=== PATIENT | female | born 1990 | race African-American/Black ===

== ENCOUNTER 2021-01-29 11:09 | Emergency (ER) | payer OTHER, MEDICAID ==
[~2021-01-29] VITALS: Ht 152.4 cm; Wt 55.8 kg
[2021-01-29] MEDS ORDERED: IBUPROFEN 200 MG TABLET. PO ONE (12:30)
[2021-01-29] MEDS ORDERED: ACETAMINOPHEN 500 MG TABLET PO ONE (12:30)
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
[2021-01-29 13:39] VITALS: BP 149/89
== END 2021-01-29 13:39 | disposition home or self-care (01) ==
LOC: ER 11:09
DX: S63.592A Other specified sprain of left wrist, initial encounter (principal); S80.01XA Contusion of right knee, initial encounter; M54.2 Cervicalgia; F17.210 Nicotine dependence, cigarettes, uncomplicated; Z90.89 Acquired absence of other organs; Z98.890 Other specified postprocedural states; V49.9XXA Car occupant (driver) (passenger) injured in unspecified traffic accident, initial encounter; Y93.89 Activity, other specified; Y92.413 State road as the place of occurrence of the external cause; Y99.8 Other external cause status
CPT/HCPCS: 70450; 71045; 72125; 73110; 73562; 81025; 99285

== ENCOUNTER 2021-06-12 07:18 | Emergency (ER) | payer MEDICAID, OTHER ==
[~2021-06-12] VITALS: Ht 154.9 cm; Wt 54.5 kg
--- NOTE | 2021-06-12 07:41 | PHYS DOC ---
Past Medical History Past Medical History: No Pertinent History Past Surgical History: Tonsillectomy, Other Additional Past Surgical Histo: adenoidectomy, hernia repair Smoking Status: Current Every Day Smoker Alcohol Use: Occasionally Drug Use: None General Adult EDM: Chief Complaint: PAIN ON URINATION HPI: HPI: Patient is a 30 year old female with history of previous UTIs and trichomonas infection who presents with approximately 8 days of dysuria. Pain started around the time of her last menstrual period on 06/03. Burning with urination has only increased. She is also complaining of frequency and urgency. She denies any fevers, chills, or flank pain. She has otherwise been feeling well. A couple of days ago she developed some vaginal itching. Has not had any vaginal discharge that she is aware of. She is concerned that she might have a sexually transmitted infection, she has recently restarted a relationship with her boyfriend. Previous trichomonas infection also occurred with this same partner. Review of Systems: Review of Systems: Constitutional: Denies fever or chills. [] Eyes: Denies change in visual acuity. [] HENT: Denies nasal congestion or sore throat. [] Respiratory: Denies cough or shortness of breath. [] Cardiovascular: Denies chest pain or edema. [] GI: Denies abdominal pain, nausea, vomiting, bloody stools or diarrhea. [] : Reports dysuria, urgency, frequency. Reports vaginal discharge. Denies flank pain.. [] Musculoskeletal: Denies back pain or joint pain. [] Integument: Denies rash. [] Neurologic: Denies headache, focal weakness or sensory changes. [] Endocrine: Denies polyuria or polydipsia. [] Lymphatic: Denies swollen glands. [] Psychiatric: Denies depression or anxiety. [] Heart Score: C/O Chest Pain: N/A Risk Factors: Risk Factors: DM, Current or recent (<one month) smoker, HTN, HLP, family history of CAD, obesity. Risk Scores: Score 0 - 3: 2.5% MACE over next 6 weeks - Discharge Home Score 4 - 6: 20.3% MACE over next 6 weeks - Admit for Clinical Observation Score 7 - 10: 72.7% MACE over next 6 weeks - Early Invasive Strategies Family History: Family History: No pertinent family history Allergies: Allergies: Allergies Coded Allergies Type Severity Reaction Last Updated Verified No Known Drug Allergies 01/29/21 No Physical Exam: PE: Constitutional: Well developed, well nourished, no acute distress, non-toxic appearance. [] HENT: Normocephalic, atraumatic, bilateral external ears normal, oropharynx moist, no oral exudates, nose normal. [] Eyes: PERRLA, EOMI, conjunctiva normal, no discharge. [] Neck: Normal range of motion, no tenderness, supple, no stridor. [] Cardiovascular:Heart rate regular rhythm, no murmur [] Lungs & Thorax: Bilateral breath sounds clear to auscultation [] Abdomen: Bowel sounds normal, soft, no tenderness, no masses, no pulsatile masses. [] : External genitalia normal. No evidence of external lesions. No evidence of friable cervical tissue or cervical masses. There is some thick white discharge with blood tingeing. Skin: Warm, dry, no erythema, no rash. [] Back: No tenderness, no CVA tenderness. [] Extremities: No tenderness, no cyanosis, no clubbing, ROM intact, no edema. [] Neurologic: Alert and oriented X 3, normal motor function, normal sensory function, no focal deficits noted. [] Psychologic: Affect normal, judgement normal, mood normal. [] Current Patient Data: Vital Signs: Vital Signs Date Time Temp Pulse Resp B/P (MAP) Pulse Ox O2 Delivery O2 Flow Rate FiO2 06/12/21 07:32 16 149/89 (109) Room Air EKG: EKG: NA [] Radiology/Procedures: Radiology/Procedures: NA [] Course & Med Decision Making: Course & Med Decision Making Pertinent Labs and Imaging studies reviewed. (See chart for details) Patient is a 30-year-old female with past medical history of trichomonas infection who presents with 8 days of dysuria, urgency, frequency concerning for urinary tract infection. Also complains of some vaginal itching. Vital signs are reviewed and are stable. No signs of sepsis or pyelonephritis. UA with 510 WBCs, with history of feel is sufficient to treat for urinary tract infection with Macrobid as this seems to be uncomplicated cystitis. Wet prep is negative. GC/Chlamydia are pending. With history of previous STI, and vaginal symptoms, and risk factor with her renewed relationship with her boyfriend will treat empirically for gonorrhea and chlamydia. Will give 500 mg IM ceftriaxone here and send with a 7-day prescription of doxycycline. Given contact information for her to establish with a PCP. Jaspreet Disclaimer: Jasp[employer] Disclaimer: This electronic medical record was generated, in whole or in part, using a voice recognition dictation system. Departure Departure Referrals: NO PCP (PCP) Scripts Nitrofurantoin Monohyd/M-Cryst (MACROBID 100 MG CAPSULE) 100 Mg Capsule 1 CAP PO BID for 7 Days, #14 CAP 0 Refills Prov: MAURA DANIELS MD 06/12/21 Doxycycline Monohydrate (DOXYCYCLINE MONOHYDRATE) 100 Mg Capsule 1 CAP PO BID for 7 Days, #14 CAP Prov: MAURA DANIELS MD 06/12/21 MAURA DANIELS MD Jun 12, 2021 07:41
[2021-06-12 07:48] LABS: BILIRUBIN,URINE NEGATIVE (NEG); CLARITY,URINE CLEAR; COLOR,URINE YELLOW; NITRITE,URINE NEGATIVE (NEG); PH,URINE 5.5 (<5.0-8.0); PROTEIN,URINE NEGATIVE (NEG-TRACE); UROBILINOGEN,URINE 0.2 mg/dL (0.2 mg/dL)
[2021-06-12 08:04] LABS: BACTERIA,URINE 0 /HPF (0-FEW); RBC,URINE OCC /HPF (0-2)
[2021-06-12] MEDS ORDERED: DOXY-181 PO (08:30)
[2021-06-12 08:36] VITALS: BP 106/72
[2021-06-12] MEDS ORDERED: NITR100C62 PO (08:42)
[2021-06-12] MEDS ORDERED: cefTRIAXone IM 500 MG VIAL. IM ONE (09:15)
[2021-06-13 19:14] LABS: GC PROBE Negative (Negative)
== END 2021-06-12 09:11 | disposition home or self-care (01) ==
LOC: ER 07:18
DX: R30.0 Dysuria (principal); R39.15 Urgency of urination; R35.0 Frequency of micturition; F17.200 Nicotine dependence, unspecified, uncomplicated; Z98.890 Other specified postprocedural states
CPT/HCPCS: 81001; 81025; 87086; 87491; 87591; 96372; 99283; J0696; Q0111

== ENCOUNTER 2021-10-21 09:18 | Observation (INO) | payer MEDICAID ==
[~2021-10-21] VITALS: Ht 160 cm; Wt 58.3 kg
[~2021-10-21 09:18] MED LIST: DOXY-181 PO; NITR100C62 PO
[2021-10-21] MEDS ORDERED: IV NORMAL SALINE 1000ML BAG 1,000 ML IV ONE (10:00)
[2021-10-21] MEDS ORDERED: ONDANSETRON PF 4 MG/2 ML VIAL. IVP ONE (10:00)
[2021-10-21 10:11] LABS: BASO % 1 % (0-3); EOS % 1 % (0-3); LYMPH # 0.4 x10^3/uL (1.0-4.8); LYMPH % 10 % (24-48); MEAN CORPUSCULAR HEMOGLOBIN 32 pg (25-35); MEAN CORPUSCULAR HGB CONC 33 g/dL (31-37); MEAN CORPUSCULAR VOLUME 98 fL (79-100); MONO # 0.2 x10^3/uL (0.0-1.1); MONO % 5 % (0-9); NEUT # 3.8 x10^3/uL (1.8-7.7); NEUT % 84 % (31-73); PLATELET COUNT 216 x10^3/uL (140-400); RED BLOOD COUNT 4.31 x10^6/uL (3.50-5.40); WHITE BLOOD COUNT 4.6 x10^3/uL (4.0-11.0)
[2021-10-21 10:17] LABS: CALCIUM 8.7 mg/dL (8.5-10.1); CREATININE 0.6 mg/dL (0.6-1.0); GFR 140.2; POTASSIUM 3.7 mmol/L (3.5-5.1)
[2021-10-21 10:23] LABS: ALBUMIN 4.1 g/dL (3.4-5.0); ALBUMIN/GLOBULIN RATIO 1.1 (1.0-1.7); TOTAL BILIRUBIN 0.4 mg/dL (0.2-1.0)
[2021-10-21 10:28] LABS: BILIRUBIN,URINE NEGATIVE (NEG); CLARITY,URINE CLEAR; COLOR,URINE YELLOW; NITRITE,URINE NEGATIVE (NEG); PH,URINE 5.5 (<5.0-8.0); PROTEIN,URINE NEGATIVE (NEG-TRACE)
[2021-10-21 10:46] LABS: BACTERIA,URINE FEW /HPF (0-FEW); RBC,URINE OCC /HPF (0-2)
--- NOTE | 2021-10-21 11:06 | RAD ---
US PELVIS W/TV History: Right lower quadrant pain. Rule out torsion. HCG negative. Comparison: None. Technique: Sonographic examination of the pelvis was performed with transabdominal and transvaginal t echnique. Findings: Uterus- Uterine parenchyma: Homogeneous without fibroids. Uterine measurements: 7.8 x 3.9 x 3.4 cm Cervix: Unremarkable. Endometrium- Endometrial Stripe: No abnormal fluid collections in the endometrial cavity, no obvious mass, and no abnormal blood flow within the endometrium by Doppler. Thickness: 4 mm. Adnexa- Right Ovary: Not identified with transabdominal or transvaginal vaginal technique. Left Ovary: Includes a 2.7 cm anechoic cyst and small follicles. Size: 3.4 x 2.9 x 2.8 cm Doppler: Normal. Other: No abnormal adnexal masses. Small free fluid is seen in the right adnexa and cul-de-sac. Impression: 1. Nonvisualization of the right ovary with transabdominal and transvaginal technique. A torsed ovar y is usually enlarged and identifiable. However ovarian torsion cannot be excluded. 2. Small right adnexal and cul-de-sac free fluid. Electronically signed by: Patrick Smith MD (10/21/2021 11:03 AM) [facility]
[2021-10-21] MEDS ORDERED: KETOROLAC 30 MG/ML VIAL. IVP ONE (11:15)
[2021-10-21] MEDS ORDERED: IOHEXOL 300 MG/ML 100ML VIAL. IV ONE (13:30)
[2021-10-21] MEDS ORDERED: CONTRAST GIVEN. MC PRN (13:30)
--- NOTE | 2021-10-21 14:19 | RAD ---
INDICATION: Reason: Right lower quadrant pain / Spl. Instructions: IV omni 300 75 mls / History: COMPARISON: Ultrasound from earlier same day TECHNIQUE: Axial CT images were obtained through the abdomen and pelvis with intravenous contrast. One or more of the following individualized dose reduction techniques were utilized for this examinat ion: 1. Automated exposure control; 2. Adjustment of the mA and/or kV according to patient size; 3 . Use of iterative reconstruction technique. FINDINGS: Vascular: No abdominal aortic aneurysm. Hepatobiliary: No intrahepatic biliary duct dilation. Pancreas: No peripancreatic edema. Spleen: Spleen unremarkable. Renal/Bladder: Low-density lesion of the left kidney measuring up to 12 mm. No hydronephrosis. Urinar y bladder is partially distended. Gastrointestinal: There is some free fluid seen within the pelvis. No dilated loops of bowel to sugge st obstruction. There is cystic foci at the bilateral proximal femur which could be related to degenerative changes. The appendix is not well evaluated secondary to multiple unopacified loops of bowel within the right lower quadrant well as minimal fat right lower quadrant. IMPRESSION: * The appendix is not well evaluated secondary to minimal fat in the right lower quadrant as well a s numerous unopacified loops of bowel in the right lower quadrant of the abdomen. * Free fluid is seen within the pelvis with a somewhat loculated appearance and some prominence of t he peritoneum within the area which could be secondary to inflammatory changes to the peritoneum. * No hydronephrosis. * Low-density lesion of the left kidney. Most common cause would be renal cyst in a patient of this age. Electronically signed by: Jose Francisco Allen MD (10/21/2021 2:16 PM) [id number]
[2021-10-21] MEDS ORDERED: cefTRIAXone IV Push 1 GM VIAL. IVP SCH (16:00)
[2021-10-21] MEDS ORDERED: DOXYCYCLINE HYCLATE 100 MG TABLET PO ONE (16:15)
[2021-10-21] MEDS ORDERED: metroNIDAZOLE 500 MG TABLET PO ONE (16:15)
[2021-10-21] MEDS ORDERED: cefTRIAXone IV Push 1 GM VIAL. IVP ONE (16:15)
--- NOTE | 2021-10-21 16:16 | PHYS DOC ---
Past Medical History Past Medical History: No Pertinent History Past Surgical History: Tonsillectomy, Other Additional Past Surgical Histo: adenoidectomy, hernia repair Smoking Status: Current Every Day Smoker Additional Information: < 0.25 Alcohol Use: Occasionally Drug Use: None General Adult EDM: Chief Complaint: MULTIPLE COMPLAINTS HPI: HPI: Patient is a 31-year-old female presents emergency department complaining of lower left and lower right pelvic pain for the past week, reporting abnormal uterine bleeding for the past month, reports a 6 out of 10 pain, reports taking 2 regular strength Tylenols at 2 AM this morning without relief of pain. Reports she has a history of ovarian cyst on the left. Patient reports she is bleeding 5 pads per day. Patient denies nausea, vomiting, or diarrhea. Denies vaginal discharge, denies STI concerns, denies itching or rashes to her vaginal area. Patient denies allergies to medications, reports she takes no medications at home, has no primary care physician. Patient reports abnormal uterine ble eding problems since her Nexplanon was placed 5 years ago. Patient denies recent fever or chills, denies chest pains, denies other physical complaints or physical concerns. Review of Systems: Review of Systems: 14 body systems of review of systems have been reviewed. See HPI for pertinent positives and negative responses, otherwise all other systems are negative, nonpertinent or noncontributory. Constitutional: Negative except as outlined in HPI above. Skin: Negative except as outlined in HPI above. Eyes: Negative except as outlined in HPI above. HENT: Negative except as outlined in HPI above. Respiratory: Negative except as outlined in HPI above. Cardiovascular: Negative except as outlined in HPI above. GI: Negative except as outlined in HPI above. : Negative except as outlined in HPI above. Musculoskeletal: Negative except as outlined in HPI above. Integument: Negative except as outlined in HPI above. Neurologic: Negative except as outlined in HPI above. Endocrine: Negative except as outlined in HPI above. Lymphatic: Negative except as outlined in HPI above. Psychiatric: Negative except as outlined in HPI above. Heart Score: C/O Chest Pain: No Risk Factors: Risk Factors: DM, Current or recent (<one month) smoker, HTN, HLP, family history of CAD, obesity. Risk Scores: Score 0 - 3: 2.5% MACE over next 6 weeks - Discharge Home Score 4 - 6: 20.3% MACE over next 6 weeks - Admit for Clinical Observation Score 7 - 10: 72.7% MACE over next 6 weeks - Early Invasive Strategies Current Medications: Current Medications Medications (Trade) Dose Ordered Sig/Cassy Start Time Stop Time Status Last Admin Dose Admin Ceftriaxone Sodium (Rocephin) 1 gm 1X ONCE 10/21/21 16:15 10/21/21 16:16 Doxycycline Hyclate (Vibra-Tab) 100 mg 1X ONCE 10/21/21 16:15 10/21/21 16:16 Info (CONTRAST GIVEN -- Rx MONITORING) 1 each PRN DAILY PRN 10/21/21 13:30 10/23/21 13:29 Iohexol (Omnipaque 300 Mg/ml) 75 ml 1X ONCE 10/21/21 13:30 10/21/21 13:33 DC 10/21/21 13:44 75 ML Ketorolac Tromethamine (Toradol 30mg Vial) 30 mg 1X ONCE 10/21/21 11:15 10/21/21 11:16 DC 10/21/21 11:17 30 MG Metronidazole (Flagyl) 2,000 mg 1X ONCE 10/21/21 16:15 10/21/21 16:16 Ondansetron HCl (Zofran) 4 mg 1X ONCE 10/21/21 10:00 10/21/21 10:01 DC 10/21/21 10:02 4 MG Sodium Chloride 1,000 ml @ 1,000 mls/hr 1X ONCE 10/21/21 10:00 10/21/21 10:59 DC 10/21/21 10:01 1,000 MLS/HR Allergies: Allergies: Allergies Coded Allergies Type Severity Reaction Last Updated Verified No Known Drug Allergies 01/29/21 No Physical Exam: PE: Constitutional: Well developed, well nourished, no acute distress, non-toxic appearance. 31-year-old female in no apparent distress. HENT: Normocephalic, atraumatic. Eyes: Conjunctiva normal, no discharge. Neck: Normal range of motion. Cardiovascular: Distal cap refill less than 2 seconds, no cyanosis appreciated. Lungs & Thorax: Patient is in no respiratory distress, no adventitious lung sounds appreciated. Abdomen: Bowel sounds normal, soft, tenderness to the right low pelvic area, no left-sided pelvic pain appreciated per palpation, no masses, no pulsatile masses. No bruising or skin discoloration of the abdomen. Skin: Warm, dry, no erythema, no rash. Back: No tenderness, no CVA tenderness. Extremities: No tenderness, no cyanosis, no clubbing, ROM intact, no edema. Neurologic: Alert and oriented X 3, normal motor function, normal sensory function, no focal deficits noted. Psychologic: Affect normal, judgement normal, mood normal. 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 Current Patient Data: Labs: Laboratory Tests Test 10/21/21 09:31 10/21/21 09:39 10/21/21 09:55 Urine Collection Type Void Urine Color Yellow Urine Clarity Clear Urine pH 5.5 Urine Specific [place] 1.025 Urine Protein Negative mg/dL Urine Glucose (UA) Negative mg/dL Urine Ketones (Stick) 40 mg/dL Urine Blood Large Urine Nitrite Negative Urine Bilirubin Negative Urine Urobilinogen Dipstick 1.0 mg/dL Urine Leukocyte Esterase Moderate Urine RBC Occ /HPF Urine WBC 5-10 /HPF Urine Squamous Epithelial Cells Few /LPF Urine Bacteria Few /HPF Bedside Urine HCG, Qualitative Hcg negative White Blood Count 4.6 x10^3/uL Red Blood Count 4.31 x10^6/uL Hemoglobin 14.0 g/dL Hematocrit 42.0 % Mean Corpuscular Volume 98 fL Mean Corpuscular Hemoglobin 32 pg Mean Corpuscular Hemoglobin Concent 33 g/dL Red Cell Distribution Width 13.0 % Platelet Count 216 x10^3/uL Neutrophils (%) (Auto) 84 % Lymphocytes (%) (Auto) 10 % Monocytes (%) (Auto) 5 % Eosinophils (%) (Auto) 1 % Basophils (%) (Auto) 1 % Neutrophils # (Auto) 3.8 x10^3/uL Lymphocytes # (Auto) 0.4 x10^3/uL Monocytes # (Auto) 0.2 x10^3/uL Eosinophils # (Auto) 0.0 x10^3/uL Basophils # (Auto) 0.0 x10^3/uL Sodium Level 138 mmol/L Potassium Level 3.7 mmol/L Chloride Level 102 mmol/L Carbon Dioxide Level 24 mmol/L Anion Gap 12 Blood Urea Nitrogen 13 mg/dL Creatinine 0.6 mg/dL Estimated GFR (Cockcroft-Gault) 140.2 BUN/Creatinine Ratio 22 Glucose Level 89 mg/dL Calcium Level 8.7 mg/dL Total Bilirubin 0.4 mg/dL Aspartate Amino Transf (AST/SGOT) 24 U/L Alanine Aminotransferase (ALT/SGPT) 29 U/L Alkaline Phosphatase 59 U/L Total Protein 8.0 g/dL Albumin 4.1 g/dL Albumin/Globulin Ratio 1.1 Current Medications Medications (Trade) Dose Ordered Sig/Cassy Route PRN Reason Start Time Stop Time Status Last Admin Dose Admin Sodium Chloride 1,000 ml @ 1,000 mls/hr 1X ONCE IV 10/21/21 10:00 10/21/21 10:59 DC 10/21/21 10:01 1,000 MLS/HR Ondansetron HCl (Zofran) 4 mg 1X ONCE IVP 10/21/21 10:00 10/21/21 10:01 DC 10/21/21 10:02 4 MG Ketorolac Tromethamine (Toradol 30mg Vial) 30 mg 1X ONCE IVP 10/21/21 11:15 10/21/21 11:16 DC 10/21/21 11:17 30 MG Iohexol (Omnipaque 300 Mg/ml) 75 ml 1X ONCE IV 10/21/21 13:30 10/21/21 13:33 DC 10/21/21 13:44 75 ML Info (CONTRAST GIVEN -- Rx MONITORING) 1 each PRN DAILY PRN MC SEE COMMENTS 10/21/21 13:30 10/23/21 13:29 Metronidazole (Flagyl) 2,000 mg 1X ONCE PO 10/21/21 16:15 10/21/21 16:16 Ceftriaxone Sodium (Rocephin) 1 gm 1X ONCE IVP 10/21/21 16:15 10/21/21 16:16 Doxycycline Hyclate (Vibra-Tab) 100 mg 1X ONCE PO 10/21/21 16:15 10/21/21 16:16 Laboratory Tests Test 10/21/21 09:31 10/21/21 09:39 10/21/21 09:55 Urine Collection Type Void Urine Color Yellow Urine Clarity Clear Urine pH 5.5 (<5.0-8.0) Urine Specific [place] 1.025 (1.000-1.030) Urine Protein Negative mg/dL (NEG-TRACE) Urine Glucose (UA) Negative mg/dL (NEG) Urine Ketones (Stick) 40 mg/dL (NEG) Urine Blood Large (NEG) Urine Nitrite Negative (NEG) Urine Bilirubin Negative (NEG) Urine Urobilinogen Dipstick 1.0 mg/dL (0.2 mg/dL) Urine Leukocyte Esterase Moderate (NEG) Urine RBC Occ /HPF (0-2) Urine WBC 5-10 /HPF (0-4) Urine Squamous Epithelial Cells Few /LPF Urine Bacteria Few /HPF (0-FEW) POC Urine HCG, Qualitative Hcg negative (Negative) White Blood Count 4.6 x10^3/uL (4.0-11.0) Red Blood Count 4.31 x10^6/uL (3.50-5.40) Hemoglobin 14.0 g/dL (12.0-15.5) Hematocrit 42.0 % (36.0-47.0) Mean Corpuscular Volume 98 fL (79-100) Mean Corpuscular Hemoglobin 32 pg (25-35) Mean Corpuscular Hemoglobin Concent 33 g/dL (31-37) Red Cell Distribution Width 13.0 % (11.5-14.5) Platelet Count 216 x10^3/uL (140-400) Neutrophils (%) (Auto) 84 % (31-73) H Lymphocytes (%) (Auto) 10 % (24-48) L Monocytes (%) (Auto) 5 % (0-9) Eosinophils (%) (Auto) 1 % (0-3) Basophils (%) (Auto) 1 % (0-3) Neutrophils # (Auto) 3.8 x10^3/uL (1.8-7.7) Lymphocytes # (Auto) 0.4 x10^3/uL (1.0-4.8) L Monocytes # (Auto) 0.2 x10^3/uL (0.0-1.1) Eosinophils # (Auto) 0.0 x10^3/uL (0.0-0.7) Basophils # (Auto) 0.0 x10^3/uL (0.0-0.2) Sodium Level 138 mmol/L (136-145) Potassium Level 3.7 mmol/L (3.5-5.1) Chloride Level 102 mmol/L (98-107) Carbon Dioxide Level 24 mmol/L (21-32) Anion Gap 12 (6-14) Blood Urea Nitrogen 13 mg/dL (7-20) Creatinine 0.6 mg/dL (0.6-1.0) Estimated GFR (Cockcroft-Gault) 140.2 BUN/Creatinine Ratio 22 (6-20) H Glucose Level 89 mg/dL (70-99) Calcium Level 8.7 mg/dL (8.5-10.1) Total Bilirubin 0.4 mg/dL (0.2-1.0) Aspartate Amino Transferase (AST) 24 U/L (15-37) Alanine Aminotransferase (ALT) 29 U/L (14-59) Alkaline Phosphatase 59 U/L (46-116) Total Protein 8.0 g/dL (6.4-8.2) Albumin 4.1 g/dL (3.4-5.0) Albumin/Globulin Ratio 1.1 (1.0-1.7) Laboratory Tests 10/21/21 09:55 Laboratory Tests 10/21/21 09:55 Microbiology 10/21/21 Wet Prep - Final, Complete Vital Signs: Vital Signs Date Time Temp Pulse Resp B/P (MAP) Pulse Ox O2 Delivery O2 Flow Rate FiO2 10/21/21 14:05 68 144/81 (102) 100 Room Air 10/21/21 11:05 17 10/21/21 09:29 98.9 98.9 EKG: EKG: [] Radiology/Procedures: Radiology/Procedures: REASON: RLQ pain torsion study; RT Pelvic Pain; HCG Negative PROCEDURE: PELVIS W/TV US PELVIS W/TV History: Right lower quadrant pain. Rule out torsion. HCG negative. Comparison: None. Technique: Sonographic examination of the pelvis was performed with transabdominal and transvaginal technique. Findings: Uterus- Uterine parenchyma: Homogeneous without fibroids. Uterine measurements: 7.8 x 3.9 x 3.4 cm Cervix: Unremarkable. Endometrium- Endometrial Stripe: No abnormal fluid collections in the endometrial cavity, no obvious mass, and no abnormal blood flow within the endometrium by Doppler. Thickness: 4 mm. Adnexa- Right Ovary: Not identified with transabdominal or transvaginal vaginal technique. Left Ovary: Includes a 2.7 cm anechoic cyst and small follicles. Size: 3.4 x 2.9 x 2.8 cm Doppler: Normal. Other: No abnormal adnexal masses. Small free fluid is seen in the right adnexa and cul-de-sac. Impression: 1. Nonvisualization of the right ovary with transabdominal and transvaginal technique. A torsed ovary is usually enlarged and identifiable. However ovarian torsion cannot be excluded. 2. Small right adnexal and cul-de-sac free fluid. Electronically signed by: Patrick Smith MD (10/21/2021 11:03 AM) [facility] STATUS: REG ER ORD. PHYSICIAN: FAVIOLA RANGEL APRN REASON: Right lower quadrant pain PROCEDURE: CT ABD PELV W/ IV CONTRST ONLY INDICATION: Reason: Right lower quadrant pain / Spl. Instructions: IV omni 300 75 mls / History: COMPARISON: Ultrasound from earlier same day TECHNIQUE: Axial CT images were obtained through the abdomen and pelvis with intravenous contrast. One or more of the following individualized dose reduction techniques were utilized for this examination: 1. Automated exposure control; 2. Adjustment of the mA and/or kV according to patient size; 3. Use of iterative reconstruction technique. FINDINGS: Vascular: No abdominal aortic aneurysm. Hepatobiliary: No intrahepatic biliary duct dilation. Pancreas: No peripancreatic edema. Spleen: Spleen unremarkable. Renal/Bladder: Low-density lesion of the left kidney measuring up to 12 mm. No hydronephrosis. Urinary bladder is partially distended. Gastrointestinal: There is some free fluid seen within the pelvis. No dilated loops of bowel to suggest obstruction. There is cystic foci at the bilateral proximal femur which could be related to degenerative changes. The appendix is not well evaluated secondary to multiple unopacified loops of bowel within the right lower quadrant well as minimal fat right lower quadrant. IMPRESSION: * The appendix is not well evaluated secondary to minimal fat in the right lower quadrant as well as numerous unopacified loops of bowel in the right lower quadrant of the abdomen. * Free fluid is seen within the pelvis with a somewhat loculated appearance and some prominence of the peritoneum within the area which could be secondary to inflammatory changes to the peritoneum. * No hydronephrosis. * Low-density lesion of the left kidney. Most common cause would be renal cyst in a patient of this age. Electronically signed by: Jose Francisco Allen MD (10/21/2021 2:16 PM) [id number] Course & Med Decision Making: Course & Med Decision Making Pertinent Labs and Imaging studies reviewed. (See chart for details) 31-year-old female, vital signs reviewed, presents emergency department concerning pelvic pains for the past 2 weeks, abnormal uterine bleeding for the past month. Patient's physical examination concerning for pelvic infectious process versus ovarian torsion versus other abdominal process. Will order urinalysis assay, urine test, CBC, CMP, pelvis ultrasound to rule out torsion. Pelvic exam with wet prep, gonorrhea/chlamydia testing. Pelvic examination did have positive cervicalmotion tenderness with right-sided adnexal pain, CBC and CMP unremarkable, the patient's urine was not infected, she is not per urine test, equivocal results from pelvic ultrasound reported, will order CT abdomen pelvis with IV contrast only. Patient is wet prep positive for trichomonas infection, there were no clue cells, no yeast cells seen, no other abnormalities of wet prep appreciated, GC/chlamydia testing pending, CT abdomen pelvis concerning for free fluid with possible loculations, reviewed case with ED attending physician Dr. Wolfe who recommended consulting [facility]. Called and discussed patient case and ED work-up with [facility] specialist Dr. Rivera who recommended patient be admitted under hospitalist, Dr. Rivera will consult and reevaluate for possible I&D of pelvic free fluid with loculations. Discussed Dr. Rivera's recommendations with patient who is amendable to admission to the hospital. Patient reports her pain is now a 0 out of 10. Called and discussed patient case and ED work-up with inpatient management physician Dr. Babin who agrees patient case warrants admission to the hospital with Dr. Rivera [facility] specialist consultation, [facility] Patient awaiting room number at this time. Started medications 2 g Flagyl p.o., 100 mg doxycycline p.o., 1 g of Rocephin IV. Dragon Disclaimer: Dragon Disclaimer: This electronic medical record was generated, in whole or in part, using a voice recognition dictation system. Departure Departure Impression: Primary Impression: PID (acute pelvic inflammatory disease) Additional Impressions: Abnormal uterine bleeding Pelvic pain Trichomonas infection Abnormal CT of the abdomen Disposition: ADMITTED INPATIENT Admitting Physician: BEN (Admit to Dr. Babin, [facility] specialist Dr. Rivera consulted R/T CT shows free fluid in pelvis with loculations) Condition: GUARDED Referrals: NO PCP (PCP) FAVIOLA RANGEL APRN Oct 21, 2021 16:16
[2021-10-21 17:35] VITALS: BP 130/71
[2021-10-21] MEDS: ONDANSETRON PF 4 MG/2 ML VIAL. IVP PRN (19:54)
[2021-10-21] MEDS: HYDROcodone/APAP 5/325MG 1 TAB TABLET PO PRN (19:58)
[2021-10-21] MEDS: IV NORMAL SALINE 1000ML BAG 1,000 ML IV SCH (20:05)
[2021-10-21 20:14] VITALS: BP 129/76
[2021-10-21] MEDS: DOXYCYCLINE HYCLATE 100 MG TABLET PO SCH (20:58)
[2021-10-21] MEDS: metroNIDAZOLE 500 MG TABLET PO SCH (22:15)
--- NOTE | 2021-10-22 01:27 | HP ---
DATE OF SERVICE: 10/21/2021 ADMIT DATE: 10/21/2021 CHIEF COMPLAINT: Abdominal pain and pelvic pain. HISTORY OF PRESENT ILLNESS: The patient is a pleasant 31-year-old female who presented to the ER this evening with left lower quadrant pain and right pelvic pain. The pelvic ultrasound is showing right adnexal cul-de-sac free fluid. The abdominal CT is also showing the free fluid within the pelvis with a loculated appearance and prominence of the peritoneum with secondary inflammation changes to the peritoneum. I discussed the case with ER physician. We are going to admit the patient with consultation to [facility] and we are going to go ahead and start empiric IV antibiotics with Rocephin and Flagyl and she also got doxycycline in the ER. PAST MEDICAL HISTORY: Ovarian cyst, tonsillectomy, adenoidectomy, hernia repair, tobacco abuse. ALLERGIES: None. FAMILY HISTORY: Diabetes. SOCIAL HISTORY: She did smoke. No drink or drugs. She works at [employer] . She has children at home. MEDICATIONS: Reviewed, please refer to the MRAD. REVIEW OF SYSTEMS: GENERAL: No history of weight change, weakness or fevers. SKIN: No bruising, hair changes or rashes. EYES: No blurred, double or loss of vision. NOSE AND THROAT: No history of nosebleeds, hoarseness or sore throat. HEART: No history of palpitations, chest pain or shortness of breath on exertion. LUNGS: Denies cough, hemoptysis, wheezing or shortness of breath. GASTROINTESTINAL: She complains of abdominal pain and pelvic pain. GENITOURINARY: No history of frequency, urgency, hesitancy or nocturia. NEUROLOGIC: Denies history of numbness, tingling, tremor or weakness. PSYCHIATRIC: No history of panic, anxiety or depression. ENDOCRINE: No history of heat or cold intolerance, polyuria or polydipsia. EXTREMITIES: Denies muscle weakness, joint pain, pain on walking or stiffness. PHYSICAL EXAMINATION: VITALS: Within normal limits and are stable. GENERAL: No apparent distress. Alert and oriented. HEENT: Normal cephalic atraumatic, external auditory canals are patent EYES: Extraocular muscles are intact, pupils are equally round and reactive to light and accommodation MUSCULOSKELETAL: Well developed, well nourished, good range of motion ENDOCRINE: No thyromegaly was palpated LYMPHATICS: No cervical chain or axillary nodes were noted HEMATOPOIETIC: No bruising NECK: Supple, no JVD, no thyromegaly was noted. LUNGS: Clear to auscultation in all lung calderon without rhonchi or wheezing. HEART: RRR, S1, S2 present. Peripheral pulses intact, no obvious murmurs were noted. ABDOMEN: She has decreased bowel sounds with some slight tenderness. EXTREMITIES: Without any cyanosis, clubbing, or edema. Pedal pulses intact, Homans sign is negative. NEUROLOGIC: Normal speech, normal tone. A and O x 3, moves all extremities, no obvious focal deficits. PSYCHIATRIC: Normal affect, normal mood. Stable. SKIN: No ulcerations or rashes, good skin turgor, no jaundice. VASCULAR: Good capillary refill, neurovascular bundle appears to be intact. LABORATORY DATA: Hematology is normal. Electrolytes are normal. Urinalysis, moderate leukocyte esterase with 5-10 white cells. COVID testing is negative. ASSESSMENT AND PLAN: Pelvic pain, urinary tract infection, abnormal imaging suspicious for possible pelvic inflammatory disease. The patient has been admitted. We are starting IV antibiotics. Consult Dr. Rivera of the [facility] service. IV fluids. Home meds. DVT prophylaxis. Full code. P.r.n. pain meds. JOSÉ ANTONIO/MARCIAL/AKIL DR: JOSÉ ANTONIO/vinh TID: [id number]
[2021-10-22 03:00] VITALS: BP 110/77
[2021-10-22] MEDS: HYDROcodone/APAP 5/325MG 1 TAB TABLET PO PRN ×3 (03:40→19:42)
[2021-10-22] MEDS: metroNIDAZOLE 500 MG TABLET PO SCH ×2 (06:25→22:33)
[2021-10-22 07:55] VITALS: BP 139/82
[2021-10-22] MEDS: IV NORMAL SALINE 1000ML BAG 1,000 ML IV SCH ×2 (08:47→21:10)
[2021-10-22] MEDS: DOXYCYCLINE HYCLATE 100 MG TABLET PO SCH ×2 (10:13→21:07)
[2021-10-22] MEDS ORDERED: IBUPROFEN 400 MG TABLET. PO PRN (10:15)
--- NOTE | 2021-10-22 10:34 | CONS ---
DATE OF CONSULTATION: 10/22/2021 REFERRING PHYSICIAN: Dr. Babin. REASON FOR CONSULTATION: Possible PID, antibiotic management. HISTORY OF PRESENT ILLNESS: A 31-year-old female who presented to the ER on 10/21/2021 with complaints of right pelvic pain for about a week along with abnormal uterine bleeding. The patient also had nausea and vomiting. No diarrhea. Denied any vaginal discharge. The patient continues to have intermittent bleeding. The patient has history of abnormal uterine bleeding since age of 11. She denies any GUD, itching or rash in the vaginal area. She denies taking any new medications including antibiotics. Denies any recent procedure. The patient was told to have a thyroid checked about 2 months ago, but she has not heard back from her primary care physician. The patient denies any history of trauma. The patient denies any symptoms. She was afebrile. White count was 4.6, hemoglobin of 14, platelets of 216. CMP was essentially within normal limits. UA showed large blood, moderate leukocyte esterase, 5-10 wbc's. Beta hCG negative. SARS-COVID rapid negative. The patient underwent pelvic ultrasound, which showed nonvisualization of the right ovary with transabdominal and transvaginal thickening, a torsed ovaries usually enlarged and identifiable; however, ovarian torsion cannot be excluded. Small right adnexal and cul-de-sac free fluid. The patient underwent abdominal and pelvic CT, which showed appendix was not well evaluated secondary to minimal fat in the right lower quadrant as well as numerous unopacified loops of bowel in the right lower quadrant of the abdomen, free fluid is seen within the pelvis with somewhat loculated appearance and some prominence of the peritoneum within the area, which could be secondary to inflammatory changes to the peritoneum. No hydronephrosis, low density lesion of the left kidney, most common cause would be renal cyst in a patient of her age. Chlamydia and gonorrhea PCR has been sent to the lab, which is pending. SARS-COVID PCR is pending. The patient was started on ceftriaxone, doxycycline and metronidazole. Wet prep showed positive trichomoniasis. FACILITIES PLANT ENGINEER consultation is pending at this time. Discussed with RN. No new overnight issues. PAST MEDICAL HISTORY: Ovarian cyst, tonsillectomy, adenoidectomy, hernia repair, tobacco use, marijuana use, history of gonorrhea/chlamydia. ALLERGIES: None. FAMILY HISTORY: As per HPI. SOCIAL HISTORY: Smoking positive. Smokes marijuana. Works at [employer]. Has 3 children and boyfriend at bedside. MEDICATIONS: Ceftriaxone 1gm q daily, doxycycline 100 mg po bid and metronidazole 500mg q8hrs. Other medications reviewed. REVIEW OF SYSTEMS: Negative for headache, sore throat, oral lesions, neck pain, cough, shortness of breath, chest pain, diarrhea, symptoms except for abnormal uterine bleeding, joint pain, rash, psychiatric illness, endocrine illness. PHYSICAL EXAMINATION: VITAL SIGNS: Temperature 98.5, pulse 64, respiratory rate 16, blood pressure 139/82, oxygen saturation 100% on room air. GENERAL: Alert, oriented x 3 female, nontoxic appearing, lying in bed comfortably, in no acute distress. HEENT: Normocephalic, atraumatic. Anicteric. No thrush. Oral mucosa moist. No oral lesions. No oropharyngeal exudate. NECK: Supple, no JVD, no lymphadenopathy. LUNGS: Clear bilaterally. No wheezing. HEART: S1, S2. No gallops or murmurs. ABDOMEN: Slight tenderness present in the right pelvic area. No rebound or guarding. Bowel sounds present. EXTREMITIES: No edema, no cyanosis. GENITOURINARY: Not done. BACK: Reveals normal curvature. No CVA tenderness. NEUROLOGIC: Alert and oriented x 3, grossly nonfocal. PSYCHIATRIC: Calm and cooperative, stable mood. DERMATOLOGIC: Warm, dry, no generalized rash. PIV looks clean. LABORATORY DATA: WBC 4.6, hemoglobin 14.0, hematocrit 42, platelets 216. Sodium 138, potassium 3.7, chloride 102, bicarb 24, BUN 13, creatinine 0.6, glucose 89, calcium 8.7, AST 24, ALT 29, alkaline phosphatase 59, total protein 8.0, albumin 4.1. UA shows large blood, 5-10 wbc's, occasional rbc, moderate leukocyte esterase. Beta hCG negative. SARS-COVID rapid negative. DIAGNOSTIC: Pelvic ultrasound as above. Abdominal pelvic CT as above. IMPRESSION: 1. Pelvic pain. 2. Abnormal CT abdomen and pelvis and pelvic ultrasound with right adnexal mass, possible peritoneal inflammation. 3. Abnormal uterine bleeding. 4. Trichomoniasis on wet prep. 5. Urinary tract infection. 6. Possible PID. 7. Nausea and vomiting, likely from above. 8. History of smoking and marijuana use. 9. History of gonorrhea and chlamydia in the past. RECOMMENDATIONS: 1. Continue ceftriaxone, Flagyl and doxycycline. 2. Follow up GC and chlamydia. 3. Follow up labs and cultures. 4. FACILITIES PLANT ENGINEER has been consulted. 5. Pain control per primary. 6. Continue supportive care. Thank you for allowing me to participate in this patient's care. If you have any questions, do not hesitate to contact me. Discussed with boyfriend at bedside. Discussed with RN. DORI/LEO DR: Carlos Eduardo TID: [id number] MTDD
--- NOTE | 2021-10-22 10:56 | PDOC2 ---
CONSULT Date of Consult Date of Consult DATE: 10/22/21 TIME: 10:55 Reason for Consult Reason for Consult: PID, Pelvic pain, Trich History of Present Illness Reason for Visit: 31y admitted for syncope, pelvic/vaginal pain and irregular bleeding. The pt states that she presented to urgent care after an episode of syncope yesterday morning. The event happened after dropping her kids off. After the event she was very dizzy and began vomiting. She was advised to go the ER by urgent care. The pt denies any f/c. In the ER the pt reported lower left and lower right pelvic pain for the past week, reporting abnormal uterine bleeding for the past month, and reports a 6 out of 10 pain. She is not sure if the pain is complete related to the event that brought her to the hospital. She states that she was last seen by provider in [place] over 3 yrs ago. She states that she was dxed with HTN and issues with her thyroid. She states that she has never been on HTN meds outside of . She has been bleeding since Jul. Her irregular periods were thought to be related to her thyroid by her last provider. She has had a Nexplanon placed in [place] and it was replaced in Aug. She thinks it was replaced at an office at [place]. She thinks that with her first Nexplanon her bleeding was monthly and moderate. Her bleeding pattern has been abnml with this Nexplanon. She states that her provide in [place] placed her on a baby ASA to prevent cyst formation since this has been a recurrent problem for her. Outside of the Nexplanon replacement she has not established with any PCPs. In the ER labs were obtained revealing a nml WBC , but with a left shift. Her Hgb was above 12. She was found to have Trich on the Wet Prep. This result surprised her since she has not had intercourse for months. A u/s in the ER revealing the followin. Nonvisualization of the right ovary with transabdominal and transvaginal technique. A torsed ovary is usually enlarged and identifiable. However ovarian torsion cannot be excluded. 2. Small right adnexal and cul-de-sac free fluid. At CT revealed the following: * The appendix is not well evaluated secondary to minimal fat in the right lower quadrant as well as numerous unopacified loops of bowel in the right lower quadrant of the abdomen. * Free fluid is seen within the pelvis with a somewhat loculated appearance and some prominence of the peritoneum within the area which could be secondary to inflammatory changes to the peritoneum. * No hydronephrosis. * Low-density lesion of the left kidney. Most common cause would be renal cyst in a patient of this age. Since her admission her bleeding has improved. She is still having a little diarrhea. 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 States periods have been irregular throughout life (q2wks), was placed on OCPs at 12yo to regulate SH: 1/3 PPD, rare EtOH FH: DM Current Problem List Problem List Problems Medical Problems: (1) Abnormal CT of the abdomen Status: Acute (2) Abnormal uterine bleeding Status: Acute (3) Pelvic pain Status: Acute (4) PID (acute pelvic inflammatory disease) Status: Acute (5) Trichomonas infection Status: Acute Current Medications Current Medications Current Medications Sodium Chloride 1,000 ml @ 1,000 mls/hr 1X ONCE IV Last administered on 10/21/21at 10:01; Start 10/21/21 at 10:00; Stop 10/21/21 at 10:59; Status DC Ondansetron HCl (Zofran) 4 mg 1X ONCE IVP Last administered on 10/21/21at 10:02; Start 10/21/21 at 10:00; Stop 10/21/21 at 10:01; Status DC Ketorolac Tromethamine (Toradol 30mg Vial) 30 mg 1X ONCE IVP Last administered on 10/21/21at 11:17; Start 10/21/21 at 11:15; Stop 10/21/21 at 11:16; Status DC Iohexol (Omnipaque 300 Mg/ml) 75 ml 1X ONCE IV Last administered on 10/21/21at 13:44; Start 10/21/21 at 13:30; Stop 10/21/21 at 13:33; Status DC Info (CONTRAST GIVEN -- Rx MONITORING) 1 each PRN DAILY PRN MC SEE COMMENTS; Start 10/21/21 at 13:30; Stop 10/23/21 at 13:29 Metronidazole (Flagyl) 2,000 mg 1X ONCE PO Last administered on 10/21/21at 16:08; Start 10/21/21 at 16:15; Stop 10/21/21 at 16:16; Status DC Ceftriaxone Sodium (Rocephin) 1 gm 1X ONCE IVP Last administered on 10/21/21at 16:07; Start 10/21/21 at 16:15; Stop 10/21/21 at 16:16; Status DC Doxycycline Hyclate (Vibra-Tab) 100 mg 1X ONCE PO Last administered on 10/21/21at 16:08; Start 10/21/21 at 16:15; Stop 10/21/21 at 16:16; Status DC Doxycycline Hyclate (Vibra-Tab) 100 mg BID PO Last administered on 10/22/21at 10:13; Start 10/21/21 at 21:00 Sodium Chloride 1,000 ml @ 75 mls/hr [id number] IV Last administered on 10/22/21at 08:47; Start 10/21/21 at 19:30 Acetaminophen/ Hydrocodone Bitart (Lortab 5/325) 2 tab PRN Q4HRS PRN PO PAIN Last administered on 10/22/21at 10:14; Start 10/21/21 at 19:30 Ceftriaxone Sodium (Rocephin) 1 gm Q24H IVP ; Start 10/21/21 at 16:00; Stop 10/22/21 at 09:59; Status DC Metronidazole (Flagyl) 500 mg Q8HRS PO Last administered on 10/22/21at 06:25; Start 10/21/21 at 22:00; Stop 10/22/21 at 09:59; Status DC Ondansetron HCl (Zofran) 4 mg PRN Q6HRS PRN IVP NAUSEA/VOMITING Last administered on 10/21/21at 19:54; Start 10/21/21 at 19:45 Metronidazole (Flagyl) 500 mg BID PO ; Start 10/22/21 at 21:00 Ibuprofen (Motrin) 800 mg PRN Q8HRS PRN PO INFLAMMATION; Start 10/22/21 at 10:15 Active Scripts Active Macrobid 100 Mg Capsule (Nitrofurantoin Monohyd/M-Cryst) 100 Mg Capsule 1 Cap PO BID 7 Days Doxycycline Monohydrate 100 Mg Capsule 1 Cap PO BID 7 Days Allergies Allergies: Coded Allergies: No Known Drug Allergies (Unverified , 01/29/21) Physical Exam General: Alert, Oriented X3, Cooperative, No acute distress HEENT: PERRLA, Mucous membr. moist/pink Lungs: Clear to auscultation, Normal air movement Heart: Regular rate, Normal S1, Normal S2, No murmurs Abdomen: Normal bowel sounds, Soft, No hepatosplenomegaly, No masses, Other (Diffuse lower abd pain) Extremities: No clubbing, No cyanosis, No edema, Normal pulses, No tenderness/swelling Skin: No rashes, No breakdown Neuro: Normal gait, Normal speech, Normal tone, Sensation intact, Reflexes 2+ Psych/Mental Status: Mental status NL, Mood NL Vitals VITALS Vital Signs Date Time Temp Pulse Resp B/P (MAP) Pulse Ox O2 Delivery O2 Flow Rate FiO2 10/22/21 10:14 20 10/22/21 07:55 Room Air 10/22/21 07:55 98.5 60 139/82 (101) 100 98.5 Labs Labs Laboratory Tests Test 10/21/21 09:31 10/21/21 09:39 10/21/21 09:55 10/21/21 16:10 Urine Collection Type Void Urine Color Yellow Urine Clarity Clear Urine pH 5.5 (<5.0-8.0) Urine Specific [place] 1.025 (1.000-1.030) Urine Protein Negative mg/dL (NEG-TRACE) Urine Glucose (UA) Negative mg/dL (NEG) Urine Ketones (Stick) 40 mg/dL (NEG) Urine Blood Large (NEG) Urine Nitrite Negative (NEG) Urine Bilirubin Negative (NEG) Urine Urobilinogen Dipstick 1.0 mg/dL (0.2 mg/dL) Urine Leukocyte Esterase Moderate (NEG) Urine RBC Occ /HPF (0-2) Urine WBC 5-10 /HPF (0-4) Urine Squamous Epithelial Cells Few /LPF Urine Bacteria Few /HPF (0-FEW) Bedside Urine HCG, Qualitative Hcg negative (Negative) White Blood Count 4.6 x10^3/uL (4.0-11.0) Red Blood Count 4.31 x10^6/uL (3.50-5.40) Hemoglobin 14.0 g/dL (12.0-15.5) Hematocrit 42.0 % (36.0-47.0) Mean Corpuscular Volume 98 fL (79-100) Mean Corpuscular Hemoglobin 32 pg (25-35) Mean Corpuscular Hemoglobin Concent 33 g/dL (31-37) Red Cell Distribution Width 13.0 % (11.5-14.5) Platelet Count 216 x10^3/uL (140-400) Neutrophils (%) (Auto) 84 % (31-73) Lymphocytes (%) (Auto) 10 % (24-48) Monocytes (%) (Auto) 5 % (0-9) Eosinophils (%) (Auto) 1 % (0-3) Basophils (%) (Auto) 1 % (0-3) Neutrophils # (Auto) 3.8 x10^3/uL (1.8-7.7) Lymphocytes # (Auto) 0.4 x10^3/uL (1.0-4.8) Monocytes # (Auto) 0.2 x10^3/uL (0.0-1.1) Eosinophils # (Auto) 0.0 x10^3/uL (0.0-0.7) Basophils # (Auto) 0.0 x10^3/uL (0.0-0.2) Sodium Level 138 mmol/L (136-145) Potassium Level 3.7 mmol/L (3.5-5.1) Chloride Level 102 mmol/L (98-107) Carbon Dioxide Level 24 mmol/L (21-32) Anion Gap 12 (6-14) Blood Urea Nitrogen 13 mg/dL (7-20) Creatinine 0.6 mg/dL (0.6-1.0) Estimated GFR (Cockcroft-Gault) 140.2 BUN/Creatinine Ratio 22 (6-20) Glucose Level 89 mg/dL (70-99) Calcium Level 8.7 mg/dL (8.5-10.1) Total Bilirubin 0.4 mg/dL (0.2-1.0) Aspartate Amino Transf (AST/SGOT) 24 U/L (15-37) Alanine Aminotransferase (ALT/SGPT) 29 U/L (14-59) Alkaline Phosphatase 59 U/L (46-116) Total Protein 8.0 g/dL (6.4-8.2) Albumin 4.1 g/dL (3.4-5.0) Albumin/Globulin Ratio 1.1 (1.0-1.7) SARS-CoV-2 RNA (NATE) Negative (Negative) Test 10/21/21 16:50 10/22/21 09:55 SARS-CoV-2 Antigen (Rapid) Negative (NEGATIVE) Thyroid Stimulating Hormone (TSH) 0.544 uIU/mL (0.358-3.74) Laboratory Tests Test 10/21/21 16:10 10/21/21 16:50 10/22/21 09:55 SARS-CoV-2 RNA (NATE) Negative (Negative) SARS-CoV-2 Antigen (Rapid) Negative (NEGATIVE) Thyroid Stimulating Hormone (TSH) 0.544 uIU/mL (0.358-3.74) Assessment/Plan Assessment/Plan Assessment: 31y admitted for syncope, pelvic/vaginal pain and irregular bleeding. Recommendations: 1.) Lower abd/pelvic/vaginal pain pt describes mostly as vaginal pain. Present for the last month. Suspected PID 2.) PID Trich positive. S/p Flagtl 2gm in ER. Given Ceftriaxone 1gm, Flagyl 500 mg, and Doxy 100 mg in the ER. WBC 4.6, but left shift of 84%. AF. Ct/gc pending. Switched to PO CDC recommended regime for PID of doxycycline 100 mg BID and metronidazole 500 mg BID. Pt should complete a 14 day course. Imaging suspicious for small TOA on right. 3.) AUB reports irregular bleeding throughout life. At times reports going through 5 pads a day. Bleeding pattern with previous Nexplanon monthly. Hgb 14.0. Eval and tx as outpt may be more effective. Not an active problem during this hospitalization. 4.) Syncope no episodes since admission 5.) N/V/D improving. Per primary team 6.) H/o of ovarian cyst often not a source of pain. No cyst seen on imaging during this hospitalization. 7.) Contraception Nexplanon replaced in 2019 8.) HTN BPs nml to mild over the course of her hospitalization. 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
[2021-10-22 11:24] VITALS: BP 139/85
[2021-10-22] MEDS: ONDANSETRON PF 4 MG/2 ML VIAL. IVP PRN ×2 (12:28→19:49)
--- NOTE | 2021-10-22 15:25 | PDOC ---
[employer] PROGRESS NOTE Date of Service DOS: DATE: 10/22/21 TIME: 15:25 Chief Complaint Chief Complaint A/P: Abdominal and pelvic pain - likely PID Right adnexal mass Uterine bleeding - irregular Trichomoniasis - on wet prep. UTI - pending cultures Intractable Nausea and vomiting - PID related Smoker - counseled on cessation Marijuana use - counseled FEN - regular diet PPX - ambulatory, low dvt risk FULL CODE Dispo - cont inpatient, f/u culture results History of Present Illness History of Present Illness 10/22: Admitted for intractable abdominal pain and pelvic pain with abnormal CT scan. Has an appetite today and pain is remitting somewhat. No vomiting. continuing antibiotics. GC/chlamydia pending. Seen by Bench Jeweler and ID. D/w nursing continue rocephin, metronidazole until final results, possibly home in am. Vitals/I&O Vitals/I&O: Vital Signs Date Time Temp Pulse Resp B/P (MAP) Pulse Ox O2 Delivery O2 Flow Rate FiO2 10/22/21 11:24 98.1 63 18 139/85 (103) 100 98.1 10/22/21 07:55 Room Air I & O 10/21/21 10/21/21 10/22/21 15:00 23:00 07:00 Intake Total 1000 ml 150 ml 0 ml Balance 1000 ml 150 ml 0 ml Physical Exam General: Alert, Oriented X3, Cooperative, No acute distress Heart: Regular rate, Normal S1, Normal S2, No murmurs Abdomen: Normal bowel sounds, Soft, No hepatosplenomegaly, No masses, Other (Diffuse lower abd pain) Extremities: No clubbing, No cyanosis, No edema, Normal pulses, No tenderness/swelling Skin: No rashes, No breakdown Labs Labs: Laboratory Tests Test 10/21/21 16:10 10/21/21 16:50 10/22/21 09:55 SARS-CoV-2 RNA (NATE) Negative (Negative) SARS-CoV-2 Antigen (Rapid) Negative (NEGATIVE) Thyroid Stimulating Hormone (TSH) 0.544 uIU/mL (0.358-3.74) Assessment and Plan Assessmemt and Plan Problems Medical Problems: (1) Abnormal CT of the abdomen Status: Acute (2) Abnormal uterine bleeding Status: Acute (3) Pelvic pain Status: Acute (4) PID (acute pelvic inflammatory disease) Status: Acute (5) Trichomonas infection Status: Acute Comment Review of Relevant I have reviewed the following items chuy (where applicable) has been applied. Medications: Current Medications Medications (Trade) Dose Ordered Sig/Cassy Route PRN Reason Start Time Stop Time Status Last Admin Dose Admin Metronidazole (Flagyl) 2,000 mg 1X ONCE PO 10/21/21 16:15 10/21/21 16:16 DC 10/21/21 16:08 Ceftriaxone Sodium (Rocephin) 1 gm 1X ONCE IVP 10/21/21 16:15 10/21/21 16:16 DC 10/21/21 16:07 Doxycycline Hyclate (Vibra-Tab) 100 mg 1X ONCE PO 10/21/21 16:15 10/21/21 16:16 DC 10/21/21 16:08 Doxycycline Hyclate (Vibra-Tab) 100 mg BID PO 10/21/21 21:00 10/22/21 10:13 Sodium Chloride 1,000 ml @ 75 mls/hr [id number] IV 10/21/21 19:30 10/22/21 08:47 Acetaminophen/ Hydrocodone Bitart (Lortab 5/325) 2 tab PRN Q4HRS PRN PO PAIN 10/21/21 19:30 10/22/21 10:14 Metronidazole (Flagyl) 500 mg Q8HRS PO 10/21/21 22:00 10/22/21 09:59 DC 10/22/21 06:25 Ondansetron HCl (Zofran) 4 mg PRN Q6HRS PRN IVP NAUSEA/VOMITING 10/21/21 19:45 10/22/21 12:28 Justifications for Admission Other Justification DAYNE MICHAELS MD Oct 22, 2021 15:25
[2021-10-22] MEDS ORDERED: cefTRIAXone IV Push 1 GM VIAL. IVP ONE (15:30)
[2021-10-22 16:15] VITALS: BP 151/93
[2021-10-22] MEDS ORDERED: PROCHLORPERAZINE 10 MG/2 ML VIAL. IV PRN (17:00)
[2021-10-22 19:09] LABS: GC PROBE Negative (Negative)
[2021-10-22 19:49] VITALS: BP 136/88
[2021-10-23 06:00] VITALS: BP 132/80
[2021-10-23 06:28] LABS: HEMATOCRIT 39.5 % (36.0-47.0); HEMOGLOBIN 12.9 g/dL (12.0-15.5); RED BLOOD COUNT 3.97 x10^6/uL (3.50-5.40); RED CELL DISTRIBUTION WIDTH 13.4 % (11.5-14.5); WHITE BLOOD COUNT 2.8 x10^3/uL (4.0-11.0)
--- NOTE | 2021-10-23 08:17 | PDOC ---
Infectious Disease Note Subjective: Subjective Patient feels a little better today Still has some pain and cramping in the right lower quadrant Had some nausea but no vomiting Denies any fever or abnormal vaginal discharge Vital Signs: Vital Signs Vital Signs Date Time Temp Pulse Resp B/P (MAP) Pulse Ox O2 Delivery O2 Flow Rate FiO2 10/23/21 06:00 98.9 50 16 132/80 (97) 100 Room Air 98.9 Physical Exam: PHYSICAL EXAM GENERAL: Alert, oriented x 3 female, nontoxic appearing, lying in bed comfortably, in no acute distress. HEENT: Normocephalic, atraumatic. Anicteric. No thrush. Oral mucosa moist. No oral lesions. No oropharyngeal exudate. NECK: Supple, no JVD, no lymphadenopathy. LUNGS: Clear bilaterally. No wheezing. HEART: S1, S2. No gallops or murmurs. ABDOMEN: Slight tenderness present in the right pelvic area. No rebound or guarding. Bowel sounds present. EXTREMITIES: No edema, no cyanosis. GENITOURINARY: Not done. BACK: Reveals normal curvature. No CVA tenderness. NEUROLOGIC: Alert and oriented x 3, grossly nonfocal. PSYCHIATRIC: Calm and cooperative, stable mood. DERMATOLOGIC: Warm, dry, no generalized rash. PIV looks clean. Medications: Inpatient Meds: Medications reviewed. Labs: Lab Laboratory Tests Test 10/22/21 09:55 10/23/21 05:35 Thyroid Stimulating Hormone (TSH) 0.544 uIU/mL (0.358-3.74) White Blood Count 2.8 x10^3/uL (4.0-11.0) Red Blood Count 3.97 x10^6/uL (3.50-5.40) Hemoglobin 12.9 g/dL (12.0-15.5) Hematocrit 39.5 % (36.0-47.0) Mean Corpuscular Volume 100 fL (79-100) Mean Corpuscular Hemoglobin 33 pg (25-35) Mean Corpuscular Hemoglobin Concent 33 g/dL (31-37) Red Cell Distribution Width 13.4 % (11.5-14.5) Platelet Count 210 x10^3/uL (140-400) Objective: Assessment: 1. Pelvic pain. Possible PID. 2. Abnormal CT abdomen and pelvis and pelvic ultrasound with right adnexal mass, possible peritoneal inflammation. 3. Abnormal uterine bleeding. 4. Trichomoniasis on wet prep. 5. Urinary tract infection. Urine cultures negative so far 6. Nausea and vomiting, latter improved 7. History of smoking and marijuana use. 8. History of gonorrhea and chlamydia in the past. Serology negative this admission 9. Leukopenia ? Etiology Plan: Plan of Care GC and Chlamydia negative Patient was on ceftriaxone yesterday but has been discontinued per [employer] team Continue Flagyl and doxycycline per [employer] team ID will sign off Call if any further questions ANGELLA PARDO MD Oct 23, 2021 08:17
[2021-10-23 08:30] VITALS: BP 137/82
[2021-10-23] MEDS: DOXYCYCLINE HYCLATE 100 MG TABLET PO SCH (08:56)
[2021-10-23] MEDS: metroNIDAZOLE 500 MG TABLET PO SCH (08:56)
[2021-10-23] MEDS ORDERED: METR-34 PO (09:27)
[2021-10-23] MEDS ORDERED: DOXY100T PO (09:27)
--- NOTE | 2021-10-23 10:21 | PDOC ---
[employer] PROGRESS NOTE Date of Service: DATE: 10/23/21 TIME: 10:20 Subjective: Pt states pain is better. Discussed results and f/u. Objective: Vital Signs: Vital Signs Date Time Temp Pulse Resp B/P (MAP) Pulse Ox O2 Delivery O2 Flow Rate FiO2 10/22/21 07:55 98.5 60 139/82 (101) 100 98.5 10/22/21 07:55 Room Air 10/22/21 10:14 20 Vital Signs Date Time Temp Pulse Resp B/P (MAP) Pulse Ox O2 Delivery O2 Flow Rate FiO2 10/23/21 08:30 98.6 62 20 137/82 (100) 98 98.6 10/23/21 06:00 Room Air Labs: Laboratory Tests Test 10/23/21 05:35 White Blood Count 2.8 x10^3/uL (4.0-11.0) L Red Blood Count 3.97 x10^6/uL (3.50-5.40) Hemoglobin 12.9 g/dL (12.0-15.5) Hematocrit 39.5 % (36.0-47.0) Mean Corpuscular Volume 100 fL (79-100) Mean Corpuscular Hemoglobin 33 pg (25-35) Mean Corpuscular Hemoglobin Concent 33 g/dL (31-37) Red Cell Distribution Width 13.4 % (11.5-14.5) Platelet Count 210 x10^3/uL (140-400) Laboratory Tests 10/23/21 05:35 Laboratory Tests 10/23/21 05:35 Physical Exam: GENERAL: No apparent distress. Alert and oriented. HEENT: Head normocephalic, atraumatic. NECK: Supple LUNGS: Clear to auscultation. HEART: RRR, S1, S2 present, pulses intact ABDOMEN: Soft, positive bowel sounds. EXTREMITIES: No cyanosis or edema. NEUROLOGIC: Normal speech, normal tone PSYCHIATRIC: Normal affect, normal mood. SKIN: No ulceration. Assessment & Plan: A/P 31y admitted for syncope, pelvic/vaginal pain and irregular bleeding. 1.) Lower abd/pelvic/vaginal pain improved. Suspected PID 2.) PID Trich positive. S/p Flagtl 2gm in ER. s/p Ceftriaxone x 2. AF without WBC. Ct/gc neg. On PO doxycycline and metronidazole. Will d/c with 12 days to complete a 14 day course. Imaging suspicious for small TOA on right. 3.) AUB reports irregular bleeding throughout life. At times reports going through 5 pads a day. Bleeding pattern with previous Nexplanon monthly. Hgb 14.0. Plan for outpt eval. 4.) Syncope no episodes since admission 5.) N/V/D improving. Per primary team 6.) H/o of ovarian cyst often not a source of pain. No cyst seen on imaging during this hospitalization. 7.) Contraception Nexplanon replaced in 2019 8.) HTN BPs nml to mild over the course of her hospitalization. 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 Should f/u in my office in a wk FAVIOLA SUNG MD Oct 23, 2021 10:21
--- NOTE | 2021-10-23 10:30 | NUR ---
Dismissal instructions given and signed.
[2021-10-23] MEDS: HYDROcodone/APAP 5/325MG 1 TAB TABLET PO PRN (10:38)
--- NOTE | 2021-10-23 11:15 | NUR ---
Ambultory to ER door to awaiting car VSS
--- NOTE | 2021-10-23 11:35 | PDOC3 ---
Discharge Summary Visit Information Date of Admission: Oct 21, 2021 Date of Discharge: Oct 23, 2021 Final Diagnosis Abdominal and pelvic pain - likely PID Right adnexal mass Uterine bleeding - irregular Trichomoniasis - on wet prep. UTI - pending cultures Intractable Nausea and vomiting - PID related Smoker - counseled on cessation Marijuana use - counseled Problems Medical Problems: (1) Abnormal CT of the abdomen Status: Acute (2) Abnormal uterine bleeding Status: Acute (3) Pelvic pain Status: Acute (4) PID (acute pelvic inflammatory disease) Status: Acute (5) Trichomonas infection Status: Acute Brief Hospital Course Allergies Allergies Coded Allergies Type Severity Reaction Last Updated Verified No Known Drug Allergies 01/29/21 No Vital Signs Vital Signs Date Time Temp Pulse Resp B/P (MAP) Pulse Ox O2 Delivery O2 Flow Rate FiO2 10/23/21 10:38 20 10/23/21 08:30 98.6 62 137/82 (100) 98 98.6 10/23/21 06:00 Room Air Lab Results Laboratory Tests Test 10/21/21 16:10 10/21/21 16:50 10/22/21 09:55 10/23/21 05:35 SARS-CoV-2 RNA (NATE) Negative (Negative) SARS-CoV-2 Antigen (Rapid) Negative (NEGATIVE) Thyroid Stimulating Hormone (TSH) 0.544 uIU/mL (0.358-3.74) White Blood Count 2.8 x10^3/uL (4.0-11.0) Red Blood Count 3.97 x10^6/uL (3.50-5.40) Hemoglobin 12.9 g/dL (12.0-15.5) Hematocrit 39.5 % (36.0-47.0) Mean Corpuscular Volume 100 fL (79-100) Mean Corpuscular Hemoglobin 33 pg (25-35) Mean Corpuscular Hemoglobin Concent 33 g/dL (31-37) Red Cell Distribution Width 13.4 % (11.5-14.5) Platelet Count 210 x10^3/uL (140-400) Laboratory Tests Test 10/23/21 05:35 White Blood Count 2.8 x10^3/uL (4.0-11.0) Red Blood Count 3.97 x10^6/uL (3.50-5.40) Hemoglobin 12.9 g/dL (12.0-15.5) Hematocrit 39.5 % (36.0-47.0) Mean Corpuscular Volume 100 fL (79-100) Mean Corpuscular Hemoglobin 33 pg (25-35) Mean Corpuscular Hemoglobin Concent 33 g/dL (31-37) Red Cell Distribution Width 13.4 % (11.5-14.5) Platelet Count 210 x10^3/uL (140-400) Brief Hospital Course Ms. Butler is a 31 old Admitted for intractable abdominal pain and pelvic pain with abnormal CT scan. No vomiting. started on IV antibiotics. 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 DC on PO abx, doxy, flagyl discusssed f/u and smoking cessaiton Discharge Information Condition at Discharge: Improved Follow Up: Weeks Disposition/Orders: D/C to Home Scheduled Doxycycline Hyclate (Doxycycline Hyclate) 100 Mg Tablet, 100 MG PO BID for infection for 12 Days, #24 Prescribed by: FAVIOLA SUNG MD on 10/23/21 0927 Doxycycline Monohydrate (Doxycycline Monohydrate) 100 Mg Capsule, 1 CAP PO BID for 7 Days, #14 Prescribed by: MAURA DANIELS MD on 06/12/21 0830 Metronidazole (Metronidazole) 500 Mg Tablet, 500 MG PO BID for infection for 12 Days, #24 Prescribed by: FAVIOLA SUNG MD on 10/23/21 0927 Nitrofurantoin Monohyd/M-Cryst (Macrobid 100 Mg Capsule) 100 Mg Capsule, 1 CAP PO BID for 7 Days, #14 Ref 0 Prescribed by: MAURA DANIELS MD on 06/12/21 0842 Patient Instructions Patient Instructions PT seen face to face return to work ok for 10/25 Time 33 min Justicifation of Admission Dx: Justifications for Admission: Justification of Admission Dx: Yes HOLLEY LUGO MD Oct 23, 2021 11:35
== END 2021-10-23 11:25 | disposition home or self-care (01) ==
LOC: ER 09:18 → 3 NORTH 16:00
PROVIDERS: ADMIT Internal Medicine; ATTEND Internal Medicine
DX: N73.9 Female pelvic inflammatory disease, unspecified (principal); Z20.822 Contact with and (suspected) exposure to COVID-19; A59.9 Trichomoniasis, unspecified; R10.2 Pelvic and perineal pain; N93.8 Other specified abnormal uterine and vaginal bleeding; N39.0 Urinary tract infection, site not specified; E03.9 Hypothyroidism, unspecified; F12.90 Cannabis use, unspecified, uncomplicated; F17.210 Nicotine dependence, cigarettes, uncomplicated; I10 Essential (primary) hypertension; N28.1 Cyst of kidney, acquired; N73.0 Acute parametritis and pelvic cellulitis; N92.6 Irregular menstruation, unspecified; N93.9 Abnormal uterine and vaginal bleeding, unspecified; R93.5 Abnormal findings on diagnostic imaging of other abdominal regions, including retroperitoneum; Z90.49 Acquired absence of other specified parts of digestive tract; Z79.899 Other long term (current) drug therapy; Z98.890 Other specified postprocedural states
CPT/HCPCS: 36415; 74177; 76830; 76856; 80053; 81001; 81025; 84443; 85025; 85027; 87086; 87426; 87491; 87591; 96361; 96374; 96375; 96376; 99285; G0378; J0696; J1885; J2405; J7030; Q0111; Q9967; U0003; U0005; G0379

== ENCOUNTER 2022-01-08 09:05 | Emergency (ER) | payer OTHER, MEDICAID ==
[~2022-01-08] VITALS: Ht 160 cm; Wt 59.0 kg
[~2022-01-08 09:05] MED LIST changes: +DOXY100T PO; +METR-34 PO
[2022-01-08 09:07] VITALS: BP 119/67
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
[2022-01-08] MEDS ORDERED: IBUPROFEN 200 MG TABLET. PO ONE (10:00)
== END 2022-01-08 10:28 | disposition home or self-care (01) ==
LOC: ER 09:05
DX: R07.81 Pleurodynia (principal); G89.11 Acute pain due to trauma; F17.200 Nicotine dependence, unspecified, uncomplicated; V49.49XA Driver injured in collision with other motor vehicles in traffic accident, initial encounter; Y93.89 Activity, other specified; Y92.488 Other paved roadways as the place of occurrence of the external cause; Y99.8 Other external cause status
CPT/HCPCS: 71101; 99283